=== PATIENT | male | born 1970 | race Caucasian/White ===

== ENCOUNTER 2018-12-01 10:18 | Inpatient (IN) | payer OTHER ==
[~2018-12-01] VITALS: Ht 172.7 cm; Wt 115.0 kg
[~2018-12-01 10:18] MED LIST: ALBU18HF INH; ASPI-515 PO; ATEN50TA41 PO; BENZ1TAB61 PO; BUPR100T11 PO; CEPH-368 PO; CHOL2000 PO; CLON0.5T11 PO; CYAN100028 PO; DILT360C26 PO; LEVO175T5 PO; LITH300T30 PO; LOSA100T14 PO; OMEP-110 PO; QUET200T PO; QUET400T PO
--- NOTE | 2018-12-01 10:32 | NUR ---
no answer in lobby
--- NOTE | 2018-12-01 10:41 | NUR ---
No answer in lobby x2
--- NOTE | 2018-12-01 11:11 | NUR ---
No answer in lobby x3
--- NOTE | 2018-12-01 12:00 | NUR ---
IMAGING NURSE: NO ANSWER FROM [facility] AT THIS TIME
--- NOTE | 2018-12-01 12:20 | NUR ---
PRODUCE DEPARTMENT MANAGER: PT TO ED ROOM 02 FROM [facility]OBBY AT THIS TIME
--- NOTE | 2018-12-01 12:20 | NUR ---
Yeny joya in [facility] - 12/01/18 at 1229 by EMERSON MEAT GRINDER: NO ANSWER FROM [facility] AT THIS TIME
--- NOTE | 2018-12-01 12:43 | NUR ---
PT TO ROOM 2 W/ C/O ABD PAIN MORE ON THE L SIDE AND DIARRHEA. DENIES ANY VOMITING. PT STATES HE DOES NOT FEEL NAUSEOUS. STATES SYMPTOMS STARTED THIS AM. PT RESTING ON GURNEY. NADN. VSS. DENIES ABD SURGERIES.
[2018-12-01 13:28] LABS: MEAN CORPUSCULAR HEMOGLOBIN 28.6 pg (27.5-34.5); MEAN CORPUSCULAR HGB CONC 33.6 g/dL (33.2-36.2); MEAN CORPUSCULAR VOLUME 85.2 fL (81-97); MEAN PLATELET VOLUME 9.5 fL (7.4-10.4); PLATELET COUNT 188 x10^3/uL (130-400); RED BLOOD COUNT 5.52 x10^6/uL (4.38-5.82); RED CELL DISTRIBUTION WIDTH 14.4 % (9.4-14.8)
[2018-12-01 13:36] LABS: ALANINE AMINOTRANSFERASE 54 U/L (12-78); ANION GAP 9 mmol/L (5-15); CALCIUM 9.3 mg/dL (8.5-10.1); CHLORIDE 107 mmol/L (98-107); CREATININE 1.51 mg/dL (0.7-1.3)
[2018-12-01 13:38] LABS: ALKALINE PHOSPHATASE 183 U/L (45-117); BILIRUBIN,TOTAL 1.1 mg/dL (0.2-1.0); TOTAL PROTEIN 7.5 g/dL (6.4-8.2)
--- NOTE | 2018-12-01 13:41 | NUR ---
PT AWARE OF NEED FOR UA. STATES UNABLE TO PROVIDE UA SAMPLE AT THIS TIME.
[2018-12-01 13:57] LABS: MD YES
[2018-12-01 13:59] LABS: BAND#(MANUAL) 1.88 x10^3/uL; BANDS%(MANUAL) 7 % (0-7); LYMPHS% (MANUAL) 3 % (22-44); MONOS#(MANUAL) 1.34 x10^3/uL (0.3-2.7); MONOS% (MANUAL) 5 % (2-9); SEG#(MANUAL) 22.78 x10^3/uL (1.8-6.8); SEGS% (MANUAL) 85 % (42-75)
[2018-12-01 14:00] LABS: <PLATELET ESTIMATE> ADEQUATE; <PLT MORPHOLOGY> NORMAL PLT MORPH; <RBC MORPHOLOGY> NORMAL
--- NOTE | 2018-12-01 14:37 | NUR ---
PT TO AND FROM CT IN STABLE CONDITION.
--- NOTE | 2018-12-01 15:00 | NUR ---
PT RESTING ON GURNEY. NADN. SARMIENTO.
[2018-12-01 15:22] LABS: MICROSCOPIC INDICATED
[2018-12-01 15:48] LABS: CULTURE INDICATED? YES
[2018-12-01] MEDS ORDERED: morphine SULFATE 10 MG/ML, 1ML IVPush PRN (16:00)
[2018-12-01] MEDS ORDERED: ACETAMINOPHEN 325 MG TABLET PO PRN (16:00)
[2018-12-01] MEDS ORDERED: ONDANSETRON 2MG/ML, 2ML IVPush PRN (16:00)
[2018-12-01] MEDS ORDERED: LABETALOL 5 MG/ML SYRINGE IVPush PRN (16:00)
[2018-12-01] MEDS ORDERED: SODIUM CHLORIDE 0.9% 1,000 ML IV ONE (16:00)
[2018-12-01] MEDS ORDERED: hydrALAzine 20 MG/ML, 1ML IVPush PRN (16:00)
[2018-12-01] MEDS ORDERED: PROMETHAZINE 25 MG/ML, 1ML IM PRN (16:00)
--- NOTE | 2018-12-01 16:01 | NUR ---
PER ERP DR. BUTTERFIELD NO NEED FOR IV ANTX AT THIS TIME.
[2018-12-01] MEDS ORDERED: CEFTRIAXONE PMX 1GM/50ML 50 ML ONE (16:21)
[2018-12-01] MEDS ORDERED: NICOTINE 14MG/24 HR PATCH.TD24 ONE (16:21)
[2018-12-01] MEDS ORDERED: HEPARIN 5,000 UNITS/ML, 1ML ONE (16:21)
[2018-12-01] MEDS: HEPARIN 5,000 UNITS/ML, 1ML SQ SCH (16:23)
[2018-12-01] MEDS: CEFTRIAXONE PMX 1GM/50ML 50 ML IV SCH (16:23)
[2018-12-01] MEDS: NICOTINE 14MG/24 HR PATCH.TD24 TD SCH (16:24)
[2018-12-01 16:40] LABS: CHOLESTEROL, TOTAL 131 mg/dL (140-239)
[2018-12-01 16:47] LABS: HDL CHOL % 25 % (26-37); HDL CHOLESTEROL (DIRECT) 33 mg/dL (40-60); LDL CHOLESTEROL,CALCULATED 74 mg/dL (54-169); LDL/HDL RATIO 2.2 (0.5-3.0); TRIGLYCERIDES 122 mg/dL (50-200); VLDL CHOLESTEROL 24 mg/dL (0-25)
--- NOTE | 2018-12-01 16:58 | NUR ---
REPORT GIVEN TO NELIA, RECEIVING RN. ALL QUESTIONS ANSWERED. AWAITING PT TRANSPORT.
[2018-12-01] MEDS ORDERED: SODIUM CHLORIDE FLUSH 10ML SYR IVF ONE (17:00)
[2018-12-01] MEDS: METRONIDAZOLE PMX 500MG/100ML 100 ML IV SCH ×2 (18:03→22:55)
[2018-12-01 18:06] VITALS: BP 109/69
[2018-12-01 19:06] VITALS: BP 102/65
[2018-12-01] MEDS: LACTATED RINGERS 1,000 ML IV SCH ×3 (20:37→22:57)
[2018-12-01] MEDS ORDERED: LACTATED RINGERS 1,000 ML IV SCH (21:00)
[2018-12-01] MEDS: ATENOLOL 50 MG TABLET PO SCH (22:52)
[2018-12-02] MEDS: HEPARIN 5,000 UNITS/ML, 1ML SQ SCH (00:23)
[2018-12-02 01:27] VITALS: BP 102/69
[2018-12-02] MEDS: LACTATED RINGERS 1,000 ML IV SCH ×2 (03:11→06:36)
[2018-12-02] MEDS: METRONIDAZOLE PMX 500MG/100ML 100 ML IV SCH ×4 (04:02→21:44)
[2018-12-02 05:24] LABS: MEAN CORPUSCULAR HEMOGLOBIN 28.8 pg (27.5-34.5); MEAN CORPUSCULAR HGB CONC 33.8 g/dL (33.2-36.2); MEAN CORPUSCULAR VOLUME 85.3 fL (81-97); PLATELET COUNT 160 x10^3/uL (130-400); RED BLOOD COUNT 4.95 x10^6/uL (4.38-5.82); RED CELL DISTRIBUTION WIDTH 14.4 % (9.4-14.8)
[2018-12-02 05:26] LABS: CHLORIDE 113 mmol/L (98-107)
[2018-12-02 05:34] LABS: ALANINE AMINOTRANSFERASE 62 U/L (12-78); ALBUMIN 3.4 g/dL (3.4-5.0); ALKALINE PHOSPHATASE 109 U/L (45-117); ANION GAP 7 mmol/L (5-15); BILIRUBIN,TOTAL 0.4 mg/dL (0.2-1.0); CALCIUM 8.9 mg/dL (8.5-10.1); CREATININE 1.08 mg/dL (0.7-1.3); TOTAL PROTEIN 6.6 g/dL (6.4-8.2)
[2018-12-02 06:09] LABS: BASOPHILS % (AUTO) 0 % (0-1); EOSINOPHILS # (AUTO) 0.16 x10^3/uL (0-0.4); EOSINOPHILS % (AUTO) 2 % (1-7); LYMPHOCYTES # (AUTO) 1.03 x10^3/uL (1-3.4); LYMPHOCYTES % (AUTO) 9 % (22-44); MD SCAN; MONOCYTES # (AUTO) 0.83 x10^3/uL (0.2-0.8); MONOCYTES % (AUTO) 8 % (2-9); NEUTROPHILS # (AUTO) 8.97 x10^3/uL (1.8-6.8); NEUTROPHILS % (AUTO) 82 % (42-75)
[2018-12-02 06:55] VITALS: BP 143/86
[2018-12-02] MEDS: ENOXAPARIN 40 MG/0.4 ML SQ SCH (07:51)
[2018-12-02] MEDS: ASPIRIN 81 MG TABLET EC PO SCH (07:51)
[2018-12-02] MEDS: OMEPRAZOLE 20 MG CAPSULE.DR PO SCH (07:52)
[2018-12-02] MEDS: QUETIAPINE 200 MG TABLET PO SCH (07:52)
[2018-12-02] MEDS: LEVOTHYROXINE 175 MCG TABLET PO SCH (07:52)
[2018-12-02] MEDS: ATENOLOL 50 MG TABLET PO SCH ×2 (07:53→20:36)
[2018-12-02 12:40] VITALS: BP 127/86
[2018-12-02] MEDS ORDERED: LACTATED RINGERS 1,000 ML IV SCH (16:00)
[2018-12-02] MEDS: NICOTINE 14MG/24 HR PATCH.TD24 TD SCH (16:44)
[2018-12-02] MEDS: CEFTRIAXONE PMX 1GM/50ML 50 ML IV SCH (17:46)
[2018-12-02 18:32] VITALS: BP 126/83
[2018-12-02] MEDS ORDERED: LITHIUM CARBONATE 300 MG TABLET.ER PO SCH (21:00)
[2018-12-03 00:46] VITALS: BP 125/83
[2018-12-03] MEDS: METRONIDAZOLE PMX 500MG/100ML 100 ML IV SCH (03:54)
[2018-12-03 06:20] LABS: BASOPHILS # (AUTO) 0.03 x10^3/uL (0-0.1); BASOPHILS % (AUTO) 0 % (0-1); EOSINOPHILS # (AUTO) 0.21 x10^3/uL (0-0.4); EOSINOPHILS % (AUTO) 3 % (1-7); LYMPHOCYTES # (AUTO) 1.25 x10^3/uL (1-3.4); LYMPHOCYTES % (AUTO) 19 % (22-44); MD NO; MEAN CORPUSCULAR HEMOGLOBIN 28.4 pg (27.5-34.5); MEAN CORPUSCULAR HGB CONC 33.2 g/dL (33.2-36.2); MEAN CORPUSCULAR VOLUME 85.4 fL (81-97); MEAN PLATELET VOLUME 9.4 fL (7.4-10.4); MONOCYTES # (AUTO) 0.65 x10^3/uL (0.2-0.8); MONOCYTES % (AUTO) 10 % (2-9); NEUTROPHILS # (AUTO) 4.64 x10^3/uL (1.8-6.8); NEUTROPHILS % (AUTO) 69 % (42-75); PLATELET COUNT 169 x10^3/uL (130-400); RED BLOOD COUNT 4.95 x10^6/uL (4.38-5.82); RED CELL DISTRIBUTION WIDTH 14.1 % (9.4-14.8)
[2018-12-03] MEDS: ENOXAPARIN 40 MG/0.4 ML SQ SCH (07:02)
[2018-12-03 07:11] VITALS: BP 144/84
[2018-12-03] MEDS: QUETIAPINE 200 MG TABLET PO SCH (08:08)
[2018-12-03] MEDS: LEVOTHYROXINE 175 MCG TABLET PO SCH (08:08)
[2018-12-03] MEDS: ASPIRIN 81 MG TABLET EC PO SCH (08:08)
[2018-12-03] MEDS: OMEPRAZOLE 20 MG CAPSULE.DR PO SCH (08:08)
[2018-12-03] MEDS: ATENOLOL 50 MG TABLET PO SCH (08:08)
[2018-12-03] MEDS ORDERED: CLOZ200T PO ×2 (08:43→08:45)
[2018-12-03] MEDS ORDERED: CLOZ100T18 PO ×2 (08:43→08:44)
[2018-12-03] MEDS ORDERED: LITHIUM CARBONATE 300 MG TABLET.ER PO SCH (09:00)
[2018-12-03] MEDS ORDERED: AMOXICILLIN/CLAV 875-125MG TABLET PO SCH (09:00)
[2018-12-03] MEDS ORDERED: AMOX1TAB12 PO (09:58)
== END 2018-12-03 12:55 | disposition home or self-care (01) | DRG 438 ==
LOC: ED 13:19 → EDIP 15:57 → 3NE 17:21
PROVIDERS: ADMIT Internal Medicine; ATTEND Internal Medicine
DX: K85.10 Biliary acute pancreatitis without necrosis or infection (principal); N17.0 Acute kidney failure with tubular necrosis; A09 Infectious gastroenteritis and colitis, unspecified; R16.0 Hepatomegaly, not elsewhere classified; F20.9 Schizophrenia, unspecified; I10 Essential (primary) hypertension; K59.00 Constipation, unspecified; F17.200 Nicotine dependence, unspecified, uncomplicated; R73.9 Hyperglycemia, unspecified; K76.0 Fatty (change of) liver, not elsewhere classified; E03.9 Hypothyroidism, unspecified; K80.20 Calculus of gallbladder without cholecystitis without obstruction; E66.01 Morbid (severe) obesity due to excess calories; Z87.440 Personal history of urinary (tract) infections; Z71.3 Dietary counseling and surveillance; Z79.899 Other long term (current) drug therapy; Z68.38 Body mass index [BMI] 38.0-38.9, adult
CPT/HCPCS: 36415; 74176; 76705; 80053; 80061; 80178; 80307; 81001; 83690; 84443; 85025; 87040; 87086; 93005; 96374; G0378; J0696; J1644; J7030; J7120